=== PATIENT | female | born 2000 | race Caucasian/White ===

== ENCOUNTER 2022-07-11 11:37 | Emergency (ER) | payer MEDICAID, SELFPAY ==
[2022-07-11 11:39] VITALS: BP 114/75; PULSE 90; RESP 16; TEMP 35.9; O2SAT 97; BMI 25.6
--- NOTE | 2022-07-11 12:11 | CT_ITS ---
STUDY: CT ABDOMEN AND PELVIS WITH CONTRAST REASON FOR EXAM: Female, 22 years old. appendicitis -- IV PO Contrast. The patient is adequately shielded. RADIATION DOSAGE (If Supplied By Facility): CTDIvol = ( 11.14 ) mGy, DLP = ( 626.86 ) mGycm TECHNIQUE: Transaxial images were obtained from the dome of the diaphragm to the symphysis pubis without oral contrast. IV 100mL Isovue-300 was administered. Sagittal and coronal images were reconstructed. Individualized dose optimization techniques were used for this CT. COMPARISON: None. FINDINGS: The visualized lung bases are unremarkable. The visualized portions of the heart are within normal limits. Anterior uterine gestation is seen. Normal liver. The patient is status post cholecystectomy. Normal spleen. Normal pancreas. Normal bilateral adrenal glands. Mild degree of bilateral hydronephrosis slightly more prominent on the right side most likely secondary to the state. There is a small hiatal hernia. Normal small intestine. Normal colon. The appendix is visualized and appears normal. Normal abdominal aorta. Normal inferior vena cava. Normal retroperitoneum. Normal urinary bladder. Normal abdominal wall. Normal osseous structures. CT/Abdomen/Pelvis WITH Contrast IMPRESSION: No evidence of appendicitis. Electronically Signed: Miky Montez MD at 14:08 EDT ,
--- NOTE | 2022-07-11 12:13 | EDS_ITS ---
HPI History of Present Illness Chief Complaint: Abd Pain Informant: patient Narrative Narrative: 22-year-old female presenting to the emergency room with nausea and abdominal pain. Patient is in her third trimester of . She sees Dr. Ayala. She states she has been having some vague abdominal cramping for 3 weeks. She notes that she has now developed nausea and worsening pain on the right side of her abdomen. She visited with her OB today and was sent to the emergency room to rule out appendicitis. She is G3, P2. She denies urinary symptoms. She has had prior cholecystectomy. PFSH PFSH Allergy/AdvReac Type Severity Reaction Status Date / Time No Known Allergies Allergy Verified 07/11/22 11:37 Surgical History History of cholecystectomy Social History Smoking Status: Former smoker ROS ROS ED Constitutional Constitutional ED: Denies chills, fever(s) or weight loss Eyes Eyes: Denies change in vision or diplopia ENT ENT ED: Denies ear pain, rhinorrhea or sore throat Cardiovascular Cardiovascular: Denies chest pain, orthopnea, palpitations or racing heartbeat Respiratory/Chest Respiratory/Chest: Denies cough, dyspnea or orthopnea Gastrointestinal Gastrointestinal: Reports abdominal pain and nausea; Denies diarrhea or vomiting Genitourinary Genitourinary ED: Denies dysuria, hematuria or urinary frequency Musculoskeletal Musculoskeletal: Denies arthralgias or myalgias Integumentary Denies abscess or rash Neurologic Neurologic: Denies headache(s) or weakness Psychiatric Psychiatric: Denies anxiety, depression, suicidal ideation or suicidal thoughts Endocrine Endocrinology: Denies polydipsia, polyphagia or polyuria Allergic/Immunologic Allergic/Immunologic ED: Denies mouth swelling, tongue swelling or urticaria EXAM Physical Exam Const Vital Signs: 07/11/22 11:39 Temperature 96.6 F L Temperature Source Temporal Pulse Rate 90 Respiratory Rate 16 Blood Pressure 114/75 Blood Pressure Mean 88 Pulse Ox 97 Oxygen Delivery Method Room Air Positive well nourished and well developed General Appearance ED: well developed HEENT Reports normocephalic, head/scalp atraumatic and moist mucous membranes Eyes PERRL and EOMs intact bilaterally Neck no lymphadenopathy, supple and no JVD Resp normal respiratory effort and clear to auscultation bilaterally Cardio regular rate, regular rhythm and no murmurs GI GI Narrative: Patient has tenderness to palpation on the right side of her abdomen. There is no guarding or rebound. Auscultation: normoactive bowel sounds Palpation: soft and tender; Negative for guarding or rebound tenderness present Back/Spine no CVA tenderness and normal ROM Extremity normal to inspection General Extremety ED: Negative for edema General Extremity: Negative for edema Neuro oriented x3 and CN's II-XII intact bilaterally Sensorium / Orientation: alert Motor Exam: strength 5/5 throughout Psych mental status grossly normal Mood & Affect: Negative for depressed or tearful Skin no rashes or lesions noted and no wounds MDM MDM MDM Narrative Medical decision making narrative: White count is normal at 8.3. Hemoglobin 10.0 which is most likely a physiologic anemia of . CMP negative. CT abdomen pelvis with IV and oral contrast was obtained. This showed normal appendix. At this point I think the patient can be discharged home. She has follow-up with her PROFESSIONAL NURSE next week. Return if worsening or any concerns Lab Data Attestation: I reviewed the patient's lab results. Labs: Laboratory Results - last 24 hr 07/11/22 07/11/22 12:35 12:35 WBC 8.3 RBC 3.44 L Hgb 10.0 L Hct 30.4 L MCV 88.4 MCH 29.1 MCHC 32.9 RDW Std Deviation 44.6 H RDW Coeff of Naveen 13.8 Plt Count 294 MPV 9.3 Immature Gran % (Auto) 0.500 Neut % (Auto) 72.2 H Lymph % (Auto) 19.8 [place]iffl[place] % (Auto) 6.7 Eos % (Auto) 0.6 Baso % (Auto) 0.2 Absolute Neuts (auto) 6.0 Absolute Lymphs (auto) 1.65 Nucleated RBC % 0 Sodium 140 Potassium 3.8 Chloride 109 H Carbon Dioxide 24.0 Anion Gap 7 BUN 7 Creatinine 0.52 L Estim Creat Clear Calc 150.11 Est GFR (MDRD) Af Amer 184 Est GFR (MDRD) Non-Af 152 BUN/Creatinine Ratio 13.4 Glucose 85 Calcium 9.6 Total Bilirubin 0.20 AST 9 L ALT 14 Alkaline Phosphatase 85 Total Protein 6.7 Albumin 2.5 L Globulin 4.2 Albumin/Globulin Ratio 0.6 L Radiography Diagnostic Testing: Clinical Impression(s) from Imaging Studies Abdomen/Pelvis CT 07/11/22 12:11 IMPRESSION: No evidence of appendicitis. Electronically Signed: Miky Montez MD at 14:08 EDT , Discharge Plan Triage Chief Complaint: Abd Pain ED Provider: Jack Wilcox Dx/Rx/DC Orders Clinical Impression: Abdominal pain, Third trimester , Nausea Instructions: ED Abdominal Pain Unkn Cause Fem Primary Care Provider: Care Physician,No Primary Referrals: Allison Rowell MD [Med Staff - Active Staff] - Keep Kely appointment Care Physician,No Primary [Primary Care Provider] - Disposition Disposition: Home, Self Care
[2022-07-11] MEDS: Ondansetron 4 MG/2 ML Vial IV (12:34)
[2022-07-11 12:39] LABS: Absolute Lymphocyte Count 1.65 X10^3/uL (0.83-4.51); Basophil# 0.02 X10^3/uL; Basophil% 0.2 % (0-1); Eosinophil# 0.05 X10^3/uL; Eosinophils% 0.6 % (0-5); Hematocrit 30.4 % (37-47); Lymphocyte # 1.65 X10^3/ul (0.83-4.51); Lymphocyte % 19.8 % (19-41); Mean Corp Hgb Conc 32.9 g/dL (32-36); Mean Corpuscular Hgb 29.1 pg (27.0-32.0); Mean Corpuscular Volume 88.4 fL (81-99); Mean Platelet Vol. 9.3 fl (6.2-12.0); Monocyte# 0.56 X10^3/uL; Monocyte% 6.7 % (0-10); NRBC Flagged by Analyzer 0 % (0-5); Neutrophil # 6.01 X10^3/uL (2.7-7.7); Neutrophil % 72.2 % (47-70); Platelet Count 294 K/mm3 (150-450); RBC Distribution Width CV 13.8 % (11.6-14.6); RBC Distribution Width SD 44.6 fl (35.1-43.9); Red Blood Count 3.44 M/mm3 (4.2-5.4); White Blood Count 8.3 K/mm3 (4.4-11.0)
[2022-07-11 12:55] LABS: ALB/GLOB Ratio 0.6 RATIO (0.9-2.4); AST(SGOT) 9 U/L (15-37); Alanine Aminotransfer ALT/SGPT 14 U/L (13-56); Albumin, Serum 2.5 g/dL (3.2-5.0); Alkaline Phosphatase 85 U/L (45-117); Anion Gap 7 (5-15); BUN 7 mg/dL (7-18); BUN/Creat Ratio 13.4 RATIO (10-20); Calcium,Total 9.6 mg/dL (8.5-10.1); Chloride 109 mmol/L (98-107); Creatinine, Serum 0.52 mg/dL (0.55-1.02); EST Glomerular Filtration Rate 152 mL/min (>60); Est Glom Filt Rate - Afr Amer 184 mL/min (>60); Estimated Creatinine Clearance 150.11 ml/min; Globulin 4.2 g/dL (2.2-4.2); Glucose 85 mg/dL (74-106); Potassium 3.8 mmol/L (3.5-5.1); Protein, Total 6.7 g/dL (6.4-8.2); Sodium Level 140 mmol/L (136-145)
[2022-07-11] MEDS: Acetaminophen 500 MG Tablet 1000 MG PO (13:57)
--- NOTE | 2022-07-11 14:22 | CM.ED ---
SW Note Referral Source: Case Find Referral Reason: No Primary Care Physician (PCP) SW reviewed chart and noted that patient has no PCP. SW provided patient with list of [facility] List for reference. No other issues or concerns voiced at this time. SW remains available for any additional needs. Plan: Provided patient with PCP information Ly ROME
== END 2022-07-11 14:38 | disposition home or self-care (01) ==
PROVIDERS: Emergency Provider Emergency Medicine; Visit Provider Emergency Medicine
DX: O99.891 Other specified diseases and conditions complicating pregnancy (principal); R10.9 Unspecified abdominal pain; R11.0 Nausea; Z87.891 Personal history of nicotine dependence
CPT/HCPCS: 74177; 80053; 85025; 96374; 99284; Q9967; J2405

== ENCOUNTER 2022-09-22 12:55 | Inpatient (IN) | payer MEDICAID, SELFPAY ==
[2022-09-22] VITALS (44 sets, daily range): BP systolic 80–154; BP diastolic 45–114; PULSE 46–100; TEMP 35.7–36.6; O2SAT 96–100; BMI 26.9
[2022-09-22 12:45] LABS: Hemoglobin 10.6 g/dL (12.0-15.0); Mean Corp Hgb Conc 33.1 g/dL (32-36); Mean Corpuscular Hgb 27.5 pg (27.0-32.0); Mean Corpuscular Volume 83.1 fL (81-99); Mean Platelet Vol. 10.7 fl (6.2-12.0); Platelet Count 282 K/mm3 (150-450); RBC Distribution Width CV 14.6 % (11.6-14.6); RBC Distribution Width SD 43.8 fl (35.1-43.9); Red Blood Count 3.85 M/mm3 (4.2-5.4); White Blood Count 7.3 K/mm3 (4.4-11.0)
[2022-09-22 12:53] LABS: AST(SGOT) 28 U/L (15-37); Alanine Aminotransfer ALT/SGPT 66 U/L (13-56); Creatinine, Serum 0.85 mg/dL (0.55-1.02); EST Glomerular Filtration Rate 87 mL/min (>60); Est Glom Filt Rate - Afr Amer 105 mL/min (>60); Estimated Creatinine Clearance 91.83 ml/min; Uric Acid 7.1 mg/dL (2.6-6.0)
[2022-09-22 12:58] LABS: Protein, Urine (Random) 283.9 mg/dL (<11.9); Protein:Creat Ratio 1314 mg/g CRE (0-200)
[2022-09-22] MEDS: Lactated Ringers 1,000 ML 50 ML IV (13:05)
[2022-09-22 14:00] LABS: Bedside Glucose 110 mg/dL (74-106)
[2022-09-22] MEDS: Oxytocin 15 Units/NS 250ml 15 UNITS/250 ML IV.SOLN 2 UNITS IV (14:52)
[2022-09-22 15:26] LABS: Bedside Glucose 94 mg/dL (74-106)
[2022-09-22] MEDS: LACTATED RINGERS 500 ML 999 ML IV ×3 (16:05→21:57)
[2022-09-22] MEDS: fentaNYL-bupivacaine (epidural) 100 ML BAG EPIDURAL (17:08)
[2022-09-22] MEDS: Penicillin G 3,000,000 Units 50 ML 100 UNITS IV ×2 (17:40→21:14)
[2022-09-22] MEDS: Lactated Ringers 1,000 ML 200 ML IV (19:20)
[2022-09-22 19:25] LABS: Bedside Glucose 93 mg/dL (74-106)
--- NOTE | 2022-09-22 21:06 | PCM.HP.OB ---
HPI - General General Date of Admission: 09/22/22 Date of Service: 09/22/22 Chief Complaint: elevated blood pressure HPI Narrative AVINASH HERNANDEZ, is a 22 F at 37w2d who presents to the office for a routine visit. BP elevated in mild range and proteinuria noted so she was sent to L&D for further eval. She denies GUERRERO, vision changes, RUQ pain, malaise, ctx, vb, lof. Good FM. PFSH PFSH Medical History (Updated 09/22/22 @ 21:[address] Hetal Menezes, DO) Anxiety Asthma Depression Gestational diabetes HPV (human papilloma virus) infection Pre-eclampsia PTSD (post-traumatic stress disorder) Home Medications Novolin 70-30 FlexPen U-100 10 units OTHER QHS 09/22/22 [History Last Taken 09/21/22 22:00] [id number] 1 mg tablet 1 tab PO DAILY Check with primary doctor 09/22/22 [History Last Taken 09/22/22 07:00] Allergy/AdvReac Type Severity Reaction Status Date / Time No Known Allergies Allergy Verified 09/22/22 12:07 Surgical History (Updated 09/22/22 @ 13:44 by Kavitha Mendez) History of cholecystectomy History of surgery Social History Smoking Status: Never smoker History Elective abortions Hx Para 2 Spontaneous abortions Hx # Term Pregnancies Ectopic pregnancies Hx # Pregnancies Multiple births # of living children NST FHR Rate Baby A FHR Category:: Category I Vital Signs Vital Signs Vital Signs: 09/22/22 12:16 09/22/22 12:16 09/22/22 12:16 Temperature 97.9 F Temperature Source Pulse Rate 100 Blood Pressure 135/103 H BP Systolic 135 BP Diastolic 103 Pulse Ox 09/22/22 12:16 09/22/22 12:16 09/22/22 12:31 Temperature Temperature Source Temporal Pulse Rate Blood Pressure 135/95 H BP Systolic 135 BP Diastolic 95 Pulse Ox 96 09/22/22 12:31 09/22/22 12:47 09/22/22 12:47 Temperature Temperature Source Pulse Rate 86 96 Blood Pressure 124/90 H BP Systolic 124 BP Diastolic 90 Pulse Ox 09/22/22 13:02 09/22/22 13:02 09/22/22 13:58 Temperature Temperature Source Pulse Rate 94 Blood Pressure 143/103 H 141/96 H BP Systolic 143 141 BP Diastolic 103 96 Pulse Ox 09/22/22 13:58 09/22/22 13:58 09/22/22 13:58 Temperature 97.9 F Temperature Source Temporal Pulse Rate 97 Blood Pressure BP Systolic BP Diastolic Pulse Ox 09/22/22 14:55 09/22/22 14:55 09/22/22 14:55 Temperature 97.3 F L Temperature Source Pulse Rate 85 Blood Pressure 132/90 H BP Systolic 132 BP Diastolic 90 Pulse Ox 09/22/22 14:55 09/22/22 14:55 09/22/22 15:58 Temperature Temperature Source Temporal Pulse Rate Blood Pressure 123/85 H BP Systolic 123 BP Diastolic 85 Pulse Ox 97 09/22/22 15:58 09/22/22 15:58 09/22/22 15:58 Temperature 97.9 F Temperature Source Temporal Pulse Rate 75 Blood Pressure BP Systolic BP Diastolic Pulse Ox 09/22/22 16:49 09/22/22 16:49 09/22/22 16:53 Temperature 97.7 F L Temperature Source Temporal Pulse Rate Blood Pressure 147/103 H BP Systolic 147 BP Diastolic 103 Pulse Ox 09/22/22 16:53 09/22/22 16:53 09/22/22 16:58 Temperature Temperature Source Pulse Rate 72 85 Blood Pressure BP Systolic BP Diastolic Pulse Ox 99 09/22/22 16:58 09/22/22 17:00 09/22/22 17:00 Temperature Temperature Source Pulse Rate 89 Blood Pressure 137/104 H BP Systolic 137 BP Diastolic 104 Pulse Ox 100 09/22/22 17:04 09/22/22 17:04 09/22/22 17:03 Temperature Temperature Source Pulse Rate 99 Blood Pressure 154/114 H BP Systolic 154 BP Diastolic 114 Pulse Ox 98 09/22/22 17:08 09/22/22 17:08 09/22/22 17:08 Temperature Temperature Source Pulse Rate 92 85 Blood Pressure 130/88 H BP Systolic 130 BP Diastolic 88 Pulse Ox 09/22/22 17:08 09/22/22 17:13 09/22/22 17:13 Temperature Temperature Source Pulse Rate 97 Blood Pressure 133/91 H BP Systolic 133 BP Diastolic 91 Pulse Ox 98 09/22/22 17:13 09/22/22 17:19 09/22/22 17:19 Temperature Temperature Source Pulse Rate 82 Blood Pressure 132/87 H BP Systolic 132 BP Diastolic 87 Pulse Ox 99 09/22/22 17:18 09/22/22 17:19 09/22/22 17:19 Temperature 97.5 F L Temperature Source Temporal Pulse Rate Blood Pressure BP Systolic BP Diastolic Pulse Ox 97 09/22/22 17:23 09/22/22 17:23 09/22/22 17:23 Temperature Temperature Source Pulse Rate 80 Blood Pressure 127/83 H BP Systolic 127 BP Diastolic 83 Pulse Ox 98 09/22/22 17:28 09/22/22 17:28 09/22/22 17:28 Temperature Temperature Source Pulse Rate 75 72 Blood Pressure 122/80 H BP Systolic 122 BP Diastolic 80 Pulse Ox 09/22/22 17:28 09/22/22 17:34 09/22/22 17:34 Temperature Temperature Source Pulse Rate 78 Blood Pressure 125/82 H BP Systolic 125 BP Diastolic 82 Pulse Ox 98 09/22/22 17:33 09/22/22 17:38 09/22/22 17:38 Temperature Temperature Source Pulse Rate 77 Blood Pressure BP Systolic BP Diastolic Pulse Ox 97 98 09/22/22 17:39 09/22/22 17:39 09/22/22 17:45 Temperature Temperature Source Pulse Rate 76 Blood Pressure 130/92 H 119/81 H BP Systolic 130 119 BP Diastolic 92 81 Pulse Ox 09/22/22 17:45 09/22/22 17:53 09/22/22 17:53 Temperature Temperature Source Pulse Rate 71 60 Blood Pressure 80/45 L BP Systolic 80 BP Diastolic 45 Pulse Ox 09/22/22 17:56 09/22/22 17:56 09/22/22 17:58 Temperature Temperature Source Pulse Rate 66 Blood Pressure 121/79 H BP Systolic 121 BP Diastolic 79 Pulse Ox 98 09/22/22 17:58 09/22/22 18:01 09/22/22 18:01 Temperature Temperature Source Pulse Rate 76 77 Blood Pressure BP Systolic BP Diastolic Pulse Ox 98 09/22/22 18:02 09/22/22 18:02 09/22/22 18:06 Temperature Temperature Source Pulse Rate 71 81 Blood Pressure 122/78 H BP Systolic 122 BP Diastolic 78 Pulse Ox 09/22/22 18:06 09/22/22 18:08 09/22/22 18:08 Temperature Temperature Source Pulse Rate 81 Blood Pressure 117/76 BP Systolic 117 BP Diastolic 76 Pulse Ox 97 09/22/22 18:11 09/22/22 18:11 09/22/22 18:14 Temperature Temperature Source Pulse Rate 76 Blood Pressure 141/98 H BP Systolic 141 BP Diastolic 98 Pulse Ox 98 09/22/22 18:14 09/22/22 18:15 09/22/22 18:14 Temperature 96.3 F L Temperature Source Temporal Pulse Rate 70 Blood Pressure BP Systolic BP Diastolic Pulse Ox 09/22/22 18:18 09/22/22 18:18 09/22/22 19:23 Temperature Temperature Source Pulse Rate 65 Blood Pressure 122/84 H 131/92 H BP Systolic 122 131 BP Diastolic 84 92 Pulse Ox 09/22/22 19:23 09/22/22 19:24 09/22/22 19:23 Temperature 97.3 F L Temperature Source Pulse Rate 76 Blood Pressure BP Systolic BP Diastolic Pulse Ox 98 09/22/22 20:40 09/22/22 20:40 09/22/22 20:40 Temperature 97.9 F Temperature Source Pulse Rate 46 L Blood Pressure 119/68 BP Systolic 119 BP Diastolic 68 Pulse Ox 09/22/22 20:40 09/22/22 20:40 Temperature 97.9 F Temperature Source Temporal Pulse Rate Blood Pressure BP Systolic BP Diastolic Pulse Ox Weight Weight: 162 lb Body Mass Index (BMI) 26.9 Physical Exam Const alert and no apparent distress General Appearance: comfortable GI soft to palpation and non-tender Extremity Extremity Narrative: No hyper reflexia Labs Labs Labs: Blood Type A POSITIVE Antibody Screen NEGATIVE Hct 32.0 % (37-47) L Hgb 10.6 g/dL (12.0-15.0) L Assessment & Plan (1) 37 weeks gestation of : PLAN: - Admit for IOL for pre eclampsia without severe features - AROM and pitocin - PCN for GBS positive status - Epidural for pain control - Growth AGA. EFW expected to be < 4500 g and pelvis adequate. Anticipate vaginal delivery (2) Pre-eclampsia: PLAN: - Labs on admission - No pre e symptoms - BP's mild range - No mag gtt indicated at this time - Cont to closely monitor (3) GDM, class A2: PLAN: - Diabetic protocol (4) Positive GBS test: PLAN: - PCN (5) History of depression: PLAN: - Monitor
[2022-09-22 22:26] LABS: Bedside Glucose 73 mg/dL (74-106)
--- NOTE | 2022-09-22 23:20 | PLAC_PTH ---
PATIENT: AVINASH HERNANDEZ LOC: [facility] U#:[id number] AGE/SX: 22/F ROOM: WP019 RE09/22/[address]: Becka Smalls CNM : 2000 BED: 1 DIS: 09/25/2022 SPEC #: [id number] RECD: 09/23/22 02:53 STATUS: SALAS REGabi #: [id number] MIGEL: 09/22/22 23:[address]: Becka Smalls DEPT: SURGICAL PATHOLOGY RECD BY: Aurora Campos ENTERED: 09/23/22 07:31 SP TYPE: PLACENTA OTHR DR: No Primary Care Phys Tissues: Placenta, NOS Procedures: Surgery Specimen Level V HEADER OPERATION: Vaginal delivery PRE-OP DIAGNOSIS: Possible marginal cord insertion TISSUE SUBMITTED: Placenta MICROSCOPIC DIAGNOSIS Mann placenta (530 gm): Umbilical cord ? trivascular with no inflammation. Placental membranes - No pathologic change. Placental disc ? Remote infarcts, organizing intraparenchymal hemorrhage, Jeffry-Cristiano change and increased intraparenchymal microcalcifications. AM:skip 09/25/2022 MICROSCOPIC DESCRIPTION Slides are reviewed. GROSS DESCRIPTION SPECIMEN: PLACENTA / CLINICAL INFORMATION: A. Weight: 2.955 kg B. Gestational Age: 37 weeks C. Sex: Male PLACENTAL WEIGHT (POST FIXATION): 530 gm PLACENTAL DIMENSIONS: 18.5 x 15 x 3 cm PLACENTAL SHAPE: Usual ovoid PLACENTAL WEIGHT FOR GESTATIONAL AGE: Over 99th percentile MEMBRANES - Present A. Insertion: Marginal B. Site of rupture from edge: At from edge of placental disc C. Color of membrane: Sprague-avila D. Abnormalities: None UMBILICAL CORD - Present A. Color: Sprague-avila B. Insertion: Near marginal C. Length: 47 cm D. Diameter: 1.5 cm E. Number of vessels: Three F. Abnormalities: None PLACENTAL DISC - Present A. Color of surface: Sprague-avila B. surface abnormalities: None C. Maternal cotyledons: Intact with minimal tears D. Attached retro placental clot: No clot E. Cut surface: Dark red and spongy F. Lesions: Serial sections reveal four sprague-white lesions that are firm and indurated and range in size from 1.5 to 2.5 cm in greatest dimension. G. Separate clot: Absent SECTIONS SUBMITTED: 1. Umbilical cord ( end notched) 2. Umbilical cord, placental end 3. Membrane roll 4. Placental disc, and maternal surfaces, lesion 5. Placental disc, and maternal surfaces, lesion 6. Placental disc, and maternal surfaces, lesion AM:skip 09/24/2022 TC:5 CPT: 97459
--- NOTE | 2022-09-22 23:35 | OP.PCM_ITS ---
Problems Associated Problem List Diagnoses (1) Positive GBS test: (2) GDM, class A2: (3) Pre-eclampsia: (4) 37 weeks gestation of : (5) History of depression: Report of Operation Date of Procedure: 09/22/22 Pre-Operative Diagnosis: 37 week gestation, single IUP, pre eclampsia, A2GDM Post-Operative Diagnosis: As above Surgery/Procedure Performed:: Description of Surgical Findings:: VMI in MARY LOU position. Loose nuchal cord around body x 1. Placenta with possible marginal cord insertion and 3 VC Surgeon: Hetal Menezes wet plant operator: None Type of Anesthesia: Epidural Special Medications: None Specimen's removed: Placenta Drains: Alvarez Estimated Blood Loss (mL): 100 Fluids Replaced: N/A Description of Procedure: RN called for bradycardia. heart rate tracing was 60 bpm for several minutes, and patient was taken back to the operating room for further care and assessment. Once back in the operating room, the heart rate tracing had recovered to baseline. heart rate 110 bpm/moderate variability/no accels/occasional variables with pushing. She was noted to be complete and at 0 station. Patient began pushing with good descent and good maternal effort. After several contractions the head of the was delivered in right occiput anterior position. A loose nuchal cord x1 was noted around the body of the infant and this was reduced. The anterior shoulder was delivered spontaneously followed by the posterior shoulder, and body of the infant without any force or delay. A vigorous viable male infant was delivered atraumatically and placed on maternal abdomen. Apgars were 8, 9. The cord was clamped and cut by the father the baby after 60 seconds. Cord gases were obtained. The placenta delivered spontaneously and was noted to be intact with a possible marginal cord insertion. The placenta was sent to pathology for review. The uterus was explored x1. The fundus was firm and bleeding was hemostatic. No lacerations were noted. Vaginal sweep was performed. Sponge counts were correct. Grafts/Implants Used: None Complications None Admit VTE Documentation VTE Present on Admission: No VTE Mechan Device Prophylaxis: SCD's
[2022-09-23] VITALS (46 sets, daily range): BP systolic 124–157; BP diastolic 83–112; PULSE 50–93; RESP 15–17; TEMP 36.1–36.9; O2SAT 87–99
[2022-09-23 00:25] LABS: Bedside Glucose 78 mg/dL (74-106)
[2022-09-23 00:25] LABS: Bedside Glucose 73 mg/dL (74-106)
[2022-09-23] MEDS: Ibuprofen 600 MG Tablet PO ×3 (05:38→21:01)
--- NOTE | 2022-09-23 08:18 | PCM.PROGNOTE ---
Subjective Subjective patient seen at bedside, doing well. Patient reports good pain control. lochia mild. denies GUERRERO, visual changes. Objective Data Objective Data Vital Signs: Vital Signs Temp Pulse Resp BP Pulse Ox O2 Del Method 97.7 F L 60 15 136/93 H 96 Room Air 09/23/22 08:15 09/23/22 08:15 09/23/22 05:28 09/23/22 08:15 09/23/22 08:15 09/23/22 05:28 Oxygen Delivery Method Room Air Weight: 73.482 kg Body Mass Index (BMI) 26.9 Intake & Output: Intake and Output for Last 24 Hours 09/21/22 09/22/22 09/23/22 23:59 23:59 23:59 Intake Total 3138.50 / 3138.50 199.83 / 199.83 Output Total 400 / 400 200 / 200 Balance 2738.50 / 2738.50 -0.17 / -0.17 Lab / Micro Data Result Diagrams: 09/22/22 12:25 09/22/22 12:25 Labs: Laboratory Results - last 24 hr 09/22/22 12:25: WBC 7.3, RBC 3.85 L, Hgb 10.6 L, Hct 32.0 L, MCV 83.1, MCH 27.5, MCHC 33.1, RDW Std Deviation 43.8, RDW Coeff of Naveen 14.6, Plt Count 282, MPV 10.7 09/22/22 12:25: U Random Total Protein 283.9 H, Urine Creatinine 216.00, Protein/Creatinin Ratio 1314 H 09/22/22 12:25: Creatinine 0.85, Estim Creat Clear Calc 91.83, Est GFR (MDRD) Af Amer 105, Est GFR (MDRD) Non-Af 87, Uric Acid 7.1 H, AST 28, ALT 66 H 09/22/22 12:25: Blood Type A POSITIVE, Antibody Screen NEGATIVE 09/22/22 13:41: POC Glucose 110 H 09/22/22 14:51: POC Glucose 94 09/22/22 18:58: POC Glucose 93 09/22/22 22:00: POC Glucose 73 L 09/22/22 22:38: POC Glucose 78 09/23/22 00:01: POC Glucose 73 L Physical Exam Const alert and oriented x3 General Appearance: cooperative HEENT normocephalic Neck General: normal visual inspection GI soft to palpation and non-distended GI Narrative: Fundus firm Extremity normal to inspection and no calf tenderness Skin no rashes or lesions noted Neuro oriented x3 and CN's II-XII intact bilaterally Psych mental status grossly normal Assessment & Plan Assessment/Plan (1) History of depression: (2) Pre-eclampsia: (3) Vaginal delivery: PLAN: Plan PPD# PRE E w/o severe features, GDMA2 , Doing well Routine care pain mgmt ambulation monitor BPs- no severe range bps or symptoms at this time
[2022-09-23] MEDS: Acetaminophen 500 MG Tablet 1000 MG PO ×2 (09:26→21:01)
[2022-09-23 12:14] LABS: Bedside Glucose 74 mg/dL (74-106)
--- NOTE | 2022-09-23 21:31 | NURSING ---
BP at 2044 was 138/96, pt sitting in bed and was just up ambulating in room. No other symptoms. Will reassess after patient relaxes in bed and rests for a little time.
--- NOTE | 2022-09-23 21:52 | NURSING ---
Rechecked BP was 130/94. PT stated she just recently developed a headache and some vision changes a few minutes ago since she has relaxed. Dr. Ayala on the floor for a delivery- will speak to her when she comes out of room.
[2022-09-24] VITALS (10 sets, daily range): BP systolic 131–164; BP diastolic 87–100; PULSE 67–79; RESP 14–17; TEMP 36.5–36.9; O2SAT 97–98
[2022-09-24] MEDS: Ibuprofen 600 MG Tablet PO (05:58)
[2022-09-24 07:10] LABS: Bedside Glucose 82 mg/dL (74-106)
--- NOTE | 2022-09-24 08:58 | PCM.PN.OB ---
Subjective Subjective Pain well controlled. Average lochia. Denies headache or visual changes or epigastric pain. Would like to be discharged home today. Objective Data Objective Data Vital Signs: Vital Signs Temp Pulse Resp BP Pulse Ox O2 Del Method 97.7 F L 69 17 131/91 H 98 Room Air 09/24/22 01:24 09/24/22 01:23 09/24/22 01:20 09/24/22 01:23 09/23/22 15:38 09/23/22 15:38 Oxygen Delivery Method Room Air Weight: 73.482 kg Body Mass Index (BMI) 26.9 Intake & Output: Intake and Output for Last 24 Hours 09/22/22 09/23/22 09/24/22 23:59 23:59 23:59 Intake Total 3138.50 / 3138.50 199.83 / 199.83 Output Total 400 / 400 550 / 550 Balance 2738.50 / 2738.50 -350.17 / -350.17 Lab / Micro Data Result Diagrams: 09/22/22 12:25 09/22/22 12:25 Labs: Laboratory Results - last 24 hr 09/23/22 05:00: POC Glucose 74 09/24/22 06:50: POC Glucose 82 Physical Exam Narrative 1+ lower extremity edema, 2+ DTRs, 1 beat of clonus. Const alert and no apparent distress Narrative: Fundus firm, below umbilicus. Assessment & Plan (1) Vaginal delivery: PLAN: day #2 status post vaginal delivery. is doing well. Patient has been diagnosed with preeclampsia without severe features features. Her systolic blood pressures are running in the 90s. We will start labetalol. Patient has a history of asthma but not on any current meds uncomfortable trialing labetalol. If does well can discharge home later this evening if okay with pediatrics. Follow-up in the office in 2 to 3 days or as needed. We will set up for home blood pressure monitoring if discharged home today. (2) Pre-eclampsia:
[2022-09-24] MEDS: Labetalol 200 MG Tablet PO ×2 (11:09→22:10)
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
[2022-09-24 17:22] LABS: Amphetamine Urine VISTA NEGATIVE (<1000 ng/mL); Barbiturate Urine VISTA NEGATIVE (< 200 ng/mL); Benzodiazepine Urine VISTA NEGATIVE (< 200 ng/mL); Cocaine Urine VISTA NEGATIVE (< 300 ng/mL); Ecstacy Urine VISTA NEGATIVE (< 500 ng/mL); Methadone Urine VISTA NEGATIVE (< 300 ng/mL); PCP Urine VISTA NEGATIVE (< 25 ng/mL); THC Urine VISTA NEGATIVE (< 50 ng/mL); Vista UDS pH Range 6
--- NOTE | 2022-09-24 17:23 | PN_ITS ---
Progress Note Patient evaluated by social work. Patient admits to suicidal ideation, frequently and thinking about how she would do it. We are uncomfortable disc harging the patient home at this point. She would like to be evaluated and treated inpatient for acute depression with suicidal ideation.
--- NOTE | 2022-09-24 17:35 | CASEMGMT ---
Social Work Unit: Labor and delivery Met with MOB and updated conversation with physician. Refer to prior social work notes dated 09/24/2022 for details of assessment, depression screening and suicide risk assessment. MOB agreed to sign a release of information to her mother Halina Martines and to [facility] where MOB receives counseling MOB reports MOB's mother Halina might not be too surprised about how MOB is doing. Let MOB know would be speaking to Halina about securing firearms in the home. MOB did ask about being able to pump, which this magnetic tape typewriter operator agreed to pass along when referrals are made. Called MOB's mother Halina. Updated Halina to recommendation to pursue inpatient mental health treatment for this patient/mother of baby (MOB). Halina acknowledges that HERB has been dealing with depression for a long time now and has had social stressors. Halina reports willingness to take care of HERB's baby for the duration of any inpatient mental health treatment the MOB may receive. This magnetic tape typewriter operator addressed firearms in the home and need for these firearms to be secured. Halina reports willingness and intends to change the access code so that HERB is unable to access the gun safe. Halina did express concern about breast milk versus formula for the baby. Spoke with Lucille and regarding MOB's question about being able to pump breastmilk and the MOB's mother concerned about getting baby formula. will continue to work with MOB overnight for pumping of additional milk, so that there could be a store in place to help supplements any formula that might need to be needed for the baby. Called Halina and updated. Provided this magnetic tape typewriter operator's phone number for Halina to call on 09/25/2022 for an update. Spoke with Dr. Stapleton, CLOTHES DRIER REPAIRER, and MOB has been started on medication for preeclampsia. Plan: Pending inpatient mental health treatment. -WILD Fields, LABELING MACHINE OPERATOR
--- NOTE | 2022-09-24 18:30 | CASEMGMT ---
Social Work Labor and Delivery Spoke with patient's parents and [facility] is closer than [facility] for inpatient referrals. Educated that cannot guarantee acceptance but will attempt a facility in closer proximity to the patient's family and home. Spoke with Edwige at [facility], who reports there are beds available to consider a referral. Informed Edwige this patient just delivered a baby on 09.22.22, and OB okay with keeping patient overnight to monitor blood pressure medication until 09.25.22. Asked for a message to be left on voicemail about determination of referral, and will address in the a.m. on 09.25.2022. Confirmed fax [phone] and faxed referral packet. Did not compete test due to just delivering a baby. Plan: Pending inpatient psych placement. -WILD Fields, PLANT BREEDER
[2022-09-24] MEDS: Acetaminophen 500 MG Tablet 1000 MG PO (22:53)
[2022-09-25 02:30] VITALS: BP 128/91; PULSE 72; RESP 14; TEMP 37.1
[2022-09-25] MEDS: Ibuprofen 600 MG Tablet PO (02:38)
[2022-09-25 07:45] VITALS: BP 152/107; PULSE 58; RESP 16; TEMP 36.7
[2022-09-25] MEDS: Acetaminophen 500 MG Tablet 1000 MG PO (07:52)
[2022-09-25] MEDS: Labetalol 200 MG Tablet PO (07:53)
--- NOTE | 2022-09-25 08:44 | PCM.PN.OB ---
Subjective Subjective Patient seen at bedside. Tearful at times. C/O mild headache since waking up today. Rates pain 3/10. Ambulating and voiding without difficulty. with minimal support. Working with case management for transfer to inpatient psychiatric today. Objective Data Objective Data Vital Signs: Vital Signs Temp Pulse Resp BP Pulse Ox O2 Del Method 98.0 F 58 L 16 152/107 H 98 Room Air 09/25/22 07:45 09/25/22 07:45 09/25/22 07:45 09/25/22 07:45 09/24/22 14:55 09/25/22 02:30 Oxygen Delivery Method Room Air Weight: 162 lb Body Mass Index (BMI) 26.9 Intake & Output: Intake and Output for Last 24 Hours 09/23/22 09/24/22 09/25/22 23:59 23:59 23:59 Intake Total 199.83 / 199.83 Output Total 550 / 550 Balance -350.17 / -350.17 Lab / Micro Data Result Diagrams: 09/22/22 12:25 09/22/22 12:25 Labs: Laboratory Results - last 24 hr 09/24/22 16:45: Urine Opiates Screen NEGATIVE, Urine Methadone Screen NEGATIVE, Ur Barbiturates Screen NEGATIVE, Ur Phencyclidine Scrn NEGATIVE, Ur Amphetamines Screen NEGATIVE, MDMA (Ecstasy) Screen NEGATIVE, U Benzodiazepines Scrn NEGATIVE, Urine Cocaine Screen NEGATIVE, U Cannabinoids Screen NEGATIVE, Ur Drug Screen Comment Micro: Microbiology 09/24/22 15:20 Nasal Secretion SARS-CoV-2 Antigen (Rapid) - Final ROS Eyes Eyes: Denies blurry vision, change in vision or spots in vision ENT HEENT: Denies dizziness or headache(s) Cardiovascular Cardiovascular: Denies abdominal pain, chest pain or dyspnea Respiratory/Chest Respiratory/Chest: Denies cough, dyspnea, shortness of breath at rest or shortness of breath with exertion Gastrointestinal Gastrointestinal: Denies abdominal pain, diarrhea or vomiting Genitourinary Genitourinary: Denies change in urinary stream, difficulty urinating or dysuria Musculoskeletal Musculoskeletal: Reports none Integumentary Integumentary: Denies rash Neurologic Neurologic: Denies dizziness, memory loss or weakness Physical Exam Const alert and no apparent distress General Appearance: cooperative and comfortable Exam Limitations: no limitations HEENT normocephalic Eyes General Eye: normal appearance of both eyes Neck full ROM General: normal visual inspection Chest Chest: symmetrical chest wall rise Resp normal respiratory effort and normal air movement Effort and Inspection: symmetric chest movement Auscultation: clear to auscultation bilaterally Cardio regular rate and regular rhythm GI normal to inspection, nondistended, normoactive bowel sounds Back/Spine normal ROM Extremity full ROM and no calf tenderness General Extremity: normal exam except as noted Skin no rashes or lesions noted Neuro CN's II-XII intact bilaterally Psych mental status grossly normal Psych Narrative: Mood depressed. Tearful Assessment & Plan (1) Vaginal delivery: (2) History of depression: (3) Pre-eclampsia: (4) Care and examination of lactating mother: (5) Depression: COMMENT: major depression, no medications PLAN: Plan PPD 2 BP this morning - 152/107 and 144/109- patient asymptomatic Continue Labetalol 200 mg PO BID Start Procardia XL 30 mg PO Daily Patient to be discharged but being transferred to psych. inpatient due to suicidal ideations/depression Dr. Menezes involved with plan of care Case management involved with transfer of care today
--- NOTE | 2022-09-25 08:53 | DCINST_ITS ---
Discharge Instructions Diet Discharge Diet: No restrictions Activity Discharge Activity: Return to Normal Activity, May Shower and May Take a Tub Bath May resume sexual activity in: 4-6 weeks Weight Bearing Status: Weight bearing as tolerated Dressing / Incision Call your doctor if you observe: Inability to urinate, Using more than 1 pad per hour, Shortness of breath, Dizziness, Swelling in the ankles, Chest pain, Calf discomfort and Uncontrolled pain Follow Up Care Please Follow Up With: Corrie Tomas CNM When: Within 10 days Test Results: Test results from this visit will be discussed in further detail at your follow- up appointment, if applicable. Discharge Plan Admission Admit Date/Time: 09/22/22 12:55 Primary Reason for Your Visit: Labor and Delivery Attending Provider: Becka Smalls Primary Care Provider: Gemma Ruiz Primary Discharge Orders/Prescriptions Prescriptions: New labetalol 200 mg Tablet 200 mg PO BID Qty: 60 1RF nifedipine 30 mg Tablet Extended Release 24hr 30 mg PO DAILY Qty: 30 1RF Continued ckqdtmpz-[id number]-It-FA 1 mg Tablet 1 tab PO DAILY Discontinued Novolin 70-30 FlexPen U-100 10 units OTHER QHS Rx Instructions: subcutaneous injection Referrals / Follow Up: Care Physician,No Primary [Primary Care Provider] - Disposition Disposition (needs filled in before D/C Order can be placed): Psychiatric Hospital or Unit
--- NOTE | 2022-09-25 09:08 | CASEMGMT ---
Social Work Labor and Delivery Message from Melly at [facility] stating that Dr. Jackson willing to accept if patient has not yet been placed elsewhere. Message at 2230 on 09.24.22. Called [phone] and spoke with studio operations engineer in charge. RN reports had thought patient was already placed, but did not Dr. Jackson was willing to accept. RN reports will need a test. Informed that no test is done due to patient just delivering. Updated that patient is and coming from labor and delivery. RN reports to need to confer with Dr. Jackson. Returned call to patient's mother Halina letting know that still waiting on official response from [facility]. Ask Halina to bring patient's home breast pump so that hospital can review with [facility] on proper use. Plan: Pending inpatient mental health treatment. -WILD Fields, TIMBER REPAIRER
[2022-09-25] MEDS: NIFEdipine 30 MG Tablet PO (09:14)
[2022-09-25 13:00] VITALS: BP 150/109; PULSE 70; RESP 18; TEMP 36.8
[2022-09-26 09:25] LABS: Pathology Specimen OB SEE PATHOLOGY REPORT
== END 2022-09-25 13:30 | DRG 560 ==
LOC: WPOUT 12:57 → WP 12:57
PROVIDERS: Obstetrics & Gynecology; Admitting Provider Advanced Practice Midwife; Visit Provider Advanced Practice Midwife
DX: O14.94 Unspecified pre-eclampsia, complicating childbirth (principal); Z37.0 Single live birth; R45.851 Suicidal ideations; O24.429 Gestational diabetes mellitus in childbirth, unspecified control; F32.9 Major depressive disorder, single episode, unspecified; O99.344 Other mental disorders complicating childbirth; Z3A.37 37 weeks gestation of pregnancy; O99.824 Streptococcus B carrier state complicating childbirth; O69.82X0 Labor and delivery complicated by other cord entanglement, without compression, not applicable or unspecified; O76 Abnormality in fetal heart rate and rhythm complicating labor and delivery; O99.893 Other specified diseases and conditions complicating puerperium
CPT/HCPCS: 59025; 59050; 80307; 82565; 82570; 82962; 84156; 84450; 84460; 84550; 85027; 86850; 86900; 86901; 87426; 88307; 93005; 99218; J7120; G0378; J2405

== ENCOUNTER 2023-03-17 17:38 | Emergency (ER) | payer MEDICAID, SELFPAY ==
[2023-03-17 17:38] VITALS: BP 101/74; PULSE 87; RESP 15; TEMP 36; O2SAT 100; BMI 21.2
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
[2023-03-17] MEDS: 0.9% Normal Saline 1,000 ML 1000 ML IV (19:31)
[2023-03-17 19:44] LABS: Absolute Lymphocyte Count 1.68 X10^3/uL (0.83-4.51); Basophil# 0.01 X10^3/uL; Basophil% 0.2 % (0-1); Eosinophil# 0.19 X10^3/uL; Hematocrit 33.1 % (37-47); Hemoglobin 10.8 g/dL (12.0-15.0); Lymphocyte # 1.68 X10^3/ul (0.83-4.51); Lymphocyte % 26.5 % (19-41); Mean Corp Hgb Conc 32.6 g/dL (32-36); Mean Corpuscular Hgb 27.3 pg (27.0-32.0); Mean Corpuscular Volume 83.8 fL (81-99); Mean Platelet Vol. 9.7 fl (6.2-12.0); Monocyte# 0.49 X10^3/uL; Monocyte% 7.7 % (0-10); NRBC Flagged by Analyzer 0 % (0-5); Neutrophil # 3.97 X10^3/uL (2.7-7.7); Neutrophil % 62.4 % (47-70); Platelet Count 277 K/mm3 (150-450); RBC Distribution Width CV 14.9 % (11.6-14.6); RBC Distribution Width SD 45.3 fl (35.1-43.9); Red Blood Count 3.95 M/mm3 (4.2-5.4); White Blood Count 6.4 K/mm3 (4.4-11.0)
[2023-03-17 19:56] LABS: Internal QC Validated? YES +Cl - CLEAR BKGD; Pregnancy, Serum, hCG Quali. NEGATIVE Negative
[2023-03-17 20:00] LABS: Anion Gap 8 (5-15); BUN 10 mg/dL (7-18); BUN/Creat Ratio 20.7 RATIO (10-20); Calcium,Total 9.5 mg/dL (8.5-10.1); Chloride 104 mmol/L (98-107); Creatinine, Serum 0.48 mg/dL (0.55-1.02); EST Glomerular Filtration Rate 166 mL/min (>60); Est Glom Filt Rate - Afr Amer 200 mL/min (>60); Estimated Creatinine Clearance 161.22 ml/min; Glucose 96 mg/dL (74-106); Potassium 3.8 mmol/L (3.5-5.1); Sodium Level 139 mmol/L (136-145)
[2023-03-17 20:33] VITALS: RESP 16
[2023-03-17 20:36] LABS: Bacteria 0 SEEN /hpf (None Seen); Red Blood Cells-Urine 0 SEEN /hpf (0-5)
[2023-03-17 20:46] LABS: Color, Urine Yellow (Yellow); Glucose, Dipstick Normal (Normal); Ketone-Dipstick 5 mg/dl (Negative); Leukocyte Esterase-Dipstick 25 /ul (Negative); Nitrite-Dipstick Negative (Negative); Occult Blood-Urine Negative /ul (Negative); Protein-Dipstick 30 mg/dl (Negative); Urine Clarity Sl. Cloudy (Clear); Urine Urobilinogen 4 mg/dl (Normal)
[2023-03-17 21:00] LABS: Urine Bilirubin Dipstick 1 mg/dL (Negative)
[2023-03-17 21:02] LABS: Mucous, Urine 2+ /hpf (<or=2+); Squamous Epithelial Cells - UA 10-25 SEEN /hpf (5-10); White Blood Cells 0-5 SEEN /hpf (0-5)
--- NOTE | 2023-03-17 21:37 | CT_ITS ---
EXAM: CT ABDOMEN AND PELVIS WITHOUT INTRAVENOUS CONTRAST CLINICAL INDICATION: abdominal pain TECHNIQUE: Helically acquired images were obtained of the abdomen and pelvis without intravenous contrast. This CT exam was performed using one or more of the following dose reduction techniques: automated exposure control, adjustment of the mA and/or kV according to patient size, and/or use of iterative reconstruction technique. RADIATION DOSE: Total DLP: 303.50 mGy-cm. COMPARISON: Previous enhanced abdominal pelvic CT of 07/11/2022. FINDINGS: LOWER THORAX: Solitary wedge-shaped focus of subpleural groundglass opacity at the left lung base posteriorly. No pleural effusion. 3.4 cm diameter hiatal hernia. Small amount of fluid noted within the distal esophagus within the hiatal hernia, as on the prior study. The distal esophagus shows no definite mural thickening. No coronary artery calcification is visualized. No significant pericardial effusion. ABDOMEN: LIVER: Unremarkable. Homogeneous. GALLBLADDER AND BILE DUCTS: Previous cholecystectomy. No biliary ductal dilatation or calcified common duct stone identified. PANCREAS: Unremarkable. No focal cystic mass. SPLEEN: Spleen is upper normal in size. ADRENALS: Unremarkable. No nodules. KIDNEYS AND URETERS: Unremarkable. Normal renal size and position. No hydronephrosis. STOMACH AND BOWEL: Unremarkable. No stomach or bowel distention. No focal inflammatory change. PELVIS: APPENDIX: Normal. No evidence of acute appendicitis. BLADDER: Urinary bladder is nearly empty. REPRODUCTIVE: Unremarkable as visualized. Normal size uterus with a centrally positioned IUD. No adnexal mass. ABDOMEN and PELVIS: INTRAPERITONEAL SPACE: Trace of nonspecific low density free fluid in the cul-de-sac, likely physiologic. No free air. BONES/JOINTS: Unremarkable. No suspicious lytic or blastic abnormality. No acute osseous abnormality. SOFT TISSUES: Tiny fat-filled periumbilical hernia. VASCULATURE: Normal caliber abdominal aorta. LYMPH NODES: Unremarkable. No enlarged lymph nodes. CT/Abdomen/Pelvis without Cont IMPRESSION: 1. Small hiatal hernia again noted. 2. Normal appendix. 3. Subpleural groundglass opacity within the left lower lobe, most likely atelectasis though this could possibly be due to minimal Covid pneumonia. 4. No acute intra-abdominal abnormality. Electronically Signed: Sandeep Brooks MD at 22:20 EDT ,
[2023-03-17] MEDS: Ondansetron 4 MG/2 ML Vial IV (22:20)
[2023-03-17] MEDS: 0.9% Normal Saline 1,000 ML 150 ML IV (22:20)
[2023-03-17 22:23] VITALS: BP 100/56; PULSE 82; RESP 16; O2SAT 100
== END 2023-03-17 22:41 | disposition home or self-care (01) ==
PROVIDERS: Emergency Provider Emergency Medicine; Visit Provider Emergency Medicine
DX: R11.2 Nausea with vomiting, unspecified (principal); R10.9 Unspecified abdominal pain
CPT/HCPCS: 74176; 80048; 81001; 84703; 85025; 96361; 96374; 99282; J7030; A4216; J2405

== ENCOUNTER 2025-02-07 15:08 | Emergency (ER) | payer SELFPAY ==
[2025-02-07 15:09] VITALS: BP 130/101; PULSE 90; RESP 18; TEMP 37.1; O2SAT 100; BMI 21.2
[2025-02-07 16:03] LABS: Absolute Lymphocyte Count 1.75 X10^3/uL (0.83-4.51); Absolute Neutrophil Count 4.1 X10^3/uL (2.0-7.7); Basophil# 0.05 X10^3/uL; Basophil% 0.8 % (0-1); Eosinophil# 0.05 X10^3/uL; Eosinophils% 0.8 % (0-5); Hematocrit 41.5 % (37-47); Lymphocyte # 1.75 X10^3/ul (0.83-4.51); Lymphocyte % 27.9 % (19-41); Mean Corp Hgb Conc 33.7 g/dL (32-36); Mean Corpuscular Volume 89.1 fL (81-99); Mean Platelet Vol. 9.3 fl (6.2-12.0); Monocyte# 0.34 X10^3/uL; Monocyte% 5.4 % (0-10); NRBC Flagged by Analyzer 0 % (0-5); Neutrophil # 4.08 X10^3/uL (2.7-7.7); Neutrophil % 64.9 % (47-70); Platelet Count 291 K/mm3 (150-450); RBC Distribution Width CV 13.1 % (11.6-14.6); RBC Distribution Width SD 42.7 fl (35.1-43.9); Red Blood Count 4.66 M/mm3 (4.2-5.4); White Blood Count 6.3 K/mm3 (4.4-11.0)
[2025-02-07 16:09] VITALS: BP 101/59
[2025-02-07 16:17] LABS: Internal QC Validated? YES +Cl - CLEAR BKGD; Pregnancy, Serum, hCG Quali. NEGATIVE Negative
[2025-02-07 16:25] LABS: Alcohol, Blood (Medical)-Serum < 10.1 mg/dL (<=10.0); Anion Gap 10 (5-15); BUN 8 mg/dL (4-19); BUN/Creat Ratio 11.1 RATIO (10-20); Calcium,Total 9.5 mg/dL (7.6-11.0); Carbon Dioxide 23.1 mmol/L (21.0-32.0); Chloride 104 mmol/L (98-108); Creatinine, Serum 0.75 mg/dL (0.70-1.20); EST Glomerular Filtration Rate 112 (>60); Estimated Creatinine Clearance 101.39 ml/min (50-250); Glucose 87 mg/dL (70-99); Potassium 4.4 mmol/L (3.3-5.1); Sodium Level 137 mmol/L (133-145)
--- NOTE | 2025-02-07 16:49 | EDS_ITS ---
HPI <JORGE LUIS Araiza - Last Filed: 02/07/25 19:34> History of Present Illness Chief Complaint: Depression Narrative Narrative: Patient is a 25-year-old female with history of anxiety, depression, ADHD who presents to the emergency department for feeling overwhelmed, anxiety, suicidal thoughts. Patient states has been out of her Zoloft as well as her Strattera over the last week. Patient states that she overslept her appointment today and could not get another 1. Patient then was hitting [employer] on trying to get her medication, she became angry, yelled at her significant other, and went into the bathroom. Patient states in the bath when she was alone she did have some suicidal ideations however she had no plan to harm herself. She then spoke to the [facility] mental helpline, they referred her to the emergency department. PFSH <JORGE LUIS Araiza - Last Filed: 02/07/25 19:34> [facility] Medical History (Updated 02/07/25 @ 19:34 by JORGE LUIS Araiza) Care and examination of lactating mother Vaginal delivery History of depression Positive GBS test GDM, class A2 Pre-eclampsia 37 weeks gestation of HPV (human papilloma virus) infection Asthma PTSD (post-traumatic stress disorder) Anxiety Depression Pre-eclampsia Gestational diabetes Home Medications ?Medication ?Instructions ?Recorded ?Last Taken ?Type [id number] 1 mg 1 tab PO DAILY Check with primary 09/22/22 09/22/22 07:00 History tablet doctor labetalol 200 mg tablet 200 mg PO BID #60 tabs 09/25 Unknown Rx nifedipine 30 mg tablet,extended 30 mg PO DAILY #30 ta bs 09/25/22 Unknown Rx release 24 hr ondansetron 4 mg disintegrating 4 mg PO Q8H PRN PRN Na usea #10 tabs 03/17/23 Unknown Rx tablet Allergy/AdvReac Type Severity Reaction Status Date / Time No Known Allergies Allergy Verified 02/07/25 15:10 Family History no significant family his Surgical History History of surgery History of cholecystectomy Social History Smoking Status: Current every day smoker tobacco type: e-cigarettes ROS <JORGE LUIS Araiza - Last Filed: 02/07/25 19:34> ROS ED ROS Narrative Constitutional: Negative for fever, chills, weight loss, weakness Eyes: Negative for vision loss, vision change, double vision ENT: Negative for any sore throat, ear pain, congestion Cardiovascular: Negative for any chest pain, tightness, palpitations Respiratory: Negative for any cough, sputum production, hemoptysis, dyspnea, dyspnea on exertion, orthopnea Gastrointestinal: Negative for any abdominal pain, nausea, vomiting, diarrhea, constipation, blood in stool, blood in vomit : Negative for any urinary frequency, dysuria, retention, blood in urine Muscle skeletal: Negative for any neck pain, back pain Neurological: Negative for any headache, syncope, dizziness Skin: Negative for any rashes, itching, abrasions, lacerations Psychiatric: Negative for any homicidal ideation. Positive for suicide ideation, anxiety, increased stress Hematologic: Negative for any excessive bruising, easy bleeding EXAM <JORGE LUIS Araiza - Last Filed: 02/07/25 19:34> Physical Exam Narrative Exam Narrative: Vital signs reviewed. HEET: Head normocephalic atraumatic, TMs clear bilaterally. Posterior pharynx is clear, moist mucous membranes. Nares clear bilaterally. Neck: Supple with no lymphadenopathy or tenderness. No signs of meningismus. Cardiac: Regular rate and rhythm no murmurs gallops or rubs, equal peripheral pulses bilaterally. Respiratory: Lungs clear to auscultation bilaterally. No chest tenderness. Abdomen: Soft, nontender, nondistended. No abdominal bruit or pulsatile masses. No hepatosplenomegaly Extremities: No peripheral edema, no signs of gross trauma or deformity. Active full range of motion of all extremities. Neuro: Cranial nerves II through XII intact, no focal neurological deficits. Skin: Clean dry and intact with no rash, purpura, petechiae, vesicles or pustules. Backs/flank: No CVA tenderness, no midline spinal tenderness, no deformity. Psych: Normal mood and affect. Patient appears to be in no obvious distress. Patient states he is not having suicidal ideation now. Pay states she thinks it was situational. Const Vital Signs: 02/07/25 15:09 02/07/25 16:09 02/07/25 16:57 Temperature 98.7 F Temperature Source Oral Pulse Rate 90 76 Respiratory Rate 18 16 Blood Pressure 130/101 H 101/59 L 107/81 H Blood Pressure Mean 110 73 89 Pulse Ox 100 98 Oxygen Delivery Method Room Air Room Air 02/07/25 18:00 02/07/25 19:00 02/07/25 19:55 Temperature 98 F Temperature Source Pulse Rate 96 66 Respiratory Rate 12 Blood Pressure 119/82 H 119/82 H 118/62 Blood Pressure Mean 94 94 80 Pulse Ox 99 100 Oxygen Delivery Method Room Air Positive well nourished and well developed General Appearance ED: well developed <Alberto Infante MD - Last Filed: 02/07/25 23:32> Physical Exam Const Vital Signs: 02/07/25 15:09 02/07/25 16:09 02/07/25 16:57 Temperature 98.7 F Temperature Source Oral Pulse Rate 90 76 Respiratory Rate 18 16 Blood Pressure 130/101 H 101/59 L 107/81 H Blood Pressure Mean 110 73 89 Pulse Ox 100 98 Oxygen Delivery Method Room Air Room Air 02/07/25 18:00 02/07/25 19:00 02/07/25 19:55 Temperature 98 F Temperature Source Pulse Rate 96 66 Respiratory Rate 12 Blood Pressure 119/82 H 119/82 H 118/62 Blood Pressure Mean 94 94 80 Pulse Ox 99 100 Oxygen Delivery Method Room Air MDM <JORGE LUIS Araiza - Last Filed: 02/07/25 19:34> MDM Lab Data Labs: Laboratory Results - last 24 hr 02/07/25 02/07/25 15:41 16:45 WBC 6.3 RBC 4.66 Hgb 14.0 Hct 41.5 MCV 89.1 MCH 30.0 MCHC 33.7 RDW Std Deviation 42.7 RDW Coeff of [place] 13.1 Plt Count 291 MPV 9.3 Immature Gran % (Auto) 0.200 Neut % (Auto) 64.9 Lymph % (Auto) 27.9 [place] % (Auto) 5.4 Eos % (Auto) 0.8 Baso % (Auto) 0.8 Absolute Neuts (auto) 4.1 Absolute Lymphs (auto) 1.75 Nucleated RBC % 0 Sodium 137 Potassium 4.4 Chloride 104 Carbon Dioxide 23.1 Anion Gap 10 BUN 8 Creatinine 0.75 Estim Creat Clear Calc 101.39 Est GFR (MDRD) Non-Af 112 BUN/Creatinine Ratio 11.1 Glucose 87 Calcium 9.5 Serum , Qual NEGATIVE Urine Opiates Screen NEGATIVE U Buprenorphine Qual NEGATIVE Ur Oxycodone Screen NEGATIVE Urine Methadone Screen NEGATIVE Urine Fentanyl Screen NEGATIVE Ur Barbiturates Screen NEGATIVE Ur Phencyclidine Scrn NEGATIVE Ur Amphetamines Screen NEGATIVE U Benzodiazepines Scrn NEGATIVE Urine Cocaine Screen NEGATIVE U Cannabinoids Screen PRESUMPTIVE POSITIVE Ethyl Alcohol < 10.1 Treatment and Re-Evaluation :: Differential diagnosis includes however is not limited to: Suicidal ideation, homicidal ideation, situational stress, medication noncompliance Patient appears generally well, vital signs are stable, patient is nontoxic- appearing. Presenting to the emergency department for complaints of increased stress, complaints of having suicidal ideation. Patient did get referred from the [facility] psychiatric line. Patient usually sees the counseling center.Patient's CBC is unremarkable, chemistries unremarkable, patient is not , negative for any alcohol use. Patient will need to be currently evaluated by the counselor. On my evaluation of the patient was unremarkable, no distress. Patient's drug screen was negative. Patient did get seen by the crisis center. Patient will be given a safety plan. At this time, patient is not meet any criteria for placement. Patient is becoming less suicidal. Patient believes this is mostly stress related. The crisis center is working on the patient getting the medications. At this time, patient is stable for discharge. Instructed return for any worsening feelings, suicidal ideations, homicidal ideations <Alberto Infante MD - Last Filed: 02/07/25 23:32> [facility] MDM Narrative Medical decision making narrative: Dr. Infante: I have personally performed a face to face assessment of the patient and have reviewed the [facility] Note. I performed a substantive portion of the visit including all aspects of the following. My suggs findings include: History is depression with suicidal thoughts. Was seen by crisis today and had a safety plan. Has been without her medication for approximately a week according to her boyfriend. Filled out a questionnaire which was positive for suicidal ideation, sent to emergency department. Exam is afebrile. Vital signs noted. Nontoxic-appearing. Cardiovascular examination regular rate and rhythm. Lungs clear to auscultation bilaterally. Abdomen soft nontender with normoactive bowel sounds. Denies suicidal ideation with plan currently. Medical Decision Making: Medical clearance labs. Crisis evaluation. In discussion with the crisis counselor, she has already been safety plan today. It was not felt that she was meeting criteria for placement. She will follow-up with the counseling center on a daily basis and they will see if they can have her meds written for her earlier by their provider. Disposition is discharged in stable condition. Other additions or changes: [None] History & Record Review Discussion w/independent historian: Patient and Significant other Lab Data Attestation: I reviewed the patient's lab results. Labs: Laboratory Results - last 24 hr 02/07/25 02/07/25 15:41 16:45 WBC 6.3 RBC 4.66 Hgb 14.0 Hct 41.5 MCV 89.1 MCH 30.0 MCHC 33.7 RDW Std Deviation 42.7 RDW Coeff of [place] 13.1 Plt Count 291 MPV 9.3 Immature Gran % (Auto) 0.200 Neut % (Auto) 64.9 Lymph % (Auto) 27.9 [place] % (Auto) 5.4 Eos % (Auto) 0.8 Baso % (Auto) 0.8 Absolute Neuts (auto) 4.1 Absolute Lymphs (auto) 1.75 Nucleated RBC % 0 Sodium 137 Potassium 4.4 Chloride 104 Carbon Dioxide 23.1 Anion Gap 10 BUN 8 Creatinine 0.75 Estim Creat Clear Calc 101.39 Est GFR (MDRD) Non-Af 112 BUN/Creatinine Ratio 11.1 Glucose 87 Calcium 9.5 Serum , Qual NEGATIVE Urine Opiates Screen NEGATIVE U Buprenorphine Qual NEGATIVE Ur Oxycodone Screen NEGATIVE Urine Methadone Screen NEGATIVE Urine Fentanyl Screen NEGATIVE Ur Barbiturates Screen NEGATIVE Ur Phencyclidine Scrn NEGATIVE Ur Amphetamines Screen NEGATIVE U Benzodiazepines Scrn NEGATIVE Urine Cocaine Screen NEGATIVE U Cannabinoids Screen PRESUMPTIVE POSITIVE Ethyl Alcohol < 10.1 Discharge Plan Triage Chief Complaint: Depression ED Midlevel Provider: Carlyle Fontaine ED Provider: Alberto Infante Dx/Rx/DC Orders Clinical Impression: Depression with suicidal ideation, Stress reaction, Anxiety Instructions: Anxiety Disorders Tx, Anxiety Disorders Meds, ED Anxiety Reaction Prescriptions: No Action [id number] 1 mg Tablet 1 tab PO DAILY labetalol 200 mg Tablet 200 mg PO BID Qty: 60 1RF nifedipine 30 mg Tablet Extended Release 24hr 30 mg PO DAILY Qty: 30 1RF ondansetron [ondansetron] 4 mg tablet,disintegrating 4 mg PO Q8H PRN PRN (Reason: Nausea) Qty: 10 0RF Stand Alone Forms: ED Work / School Excuse Primary Care Provider: MAGGIE ALCALA Referrals: MAGGIE ALCALA [Other] Activity Restrictions/Additional Instructions: Please continue to follow-up with the crisis center. Return for any worsening symptoms. Print Language: Ivorian Disposition Disposition: Home, Self Care Discharge Date/Time: 02/07/25 19:57
[2025-02-07 16:57] VITALS: BP 107/81; PULSE 76; RESP 16; O2SAT 98
[2025-02-07 17:25] LABS: Amphetamine Urine NEGATIVE (<1000 ng/mL); Barbiturate Urine NEGATIVE (< 200 ng/mL); Benzodiazepine Urine NEGATIVE (< 200 ng/mL); Buprenorphine Urine NEGATIVE (< 200 ng/mL); Cocaine Urine NEGATIVE (< 300 ng/mL); Fentanyl, Urine NEGATIVE; Methadone Urine NEGATIVE (< 300 ng/mL); Opiates Urine NEGATIVE (< 300 ng/mL); Oxycodone, Urine NEGATIVE (< 100 ng/mL); PCP Urine NEGATIVE (< 25 ng/mL); THC Urine PRESUMPTIVE POSITIVE (< 50 ng/mL)
--- NOTE | 2025-02-07 17:48 | CM.ED ---
Social work Due to patient being self-pay, this was referred to [facility] (ph: [phone]). Per Ifeoma at [facility], this patient had presented to [facility] as a walk-in earlier today, about 1330, and was assessed by Jemima and given a safety plan. Ifeoma stated ability to come see patient in the ED to have a further conversation. Labwork faxed to [facility] per request (f: ). Toxicology was still pending. Rose Rodrigez, CARPENTER MATE, CUSHION STUFFER
[2025-02-07 18:00] VITALS: BP 119/82; PULSE 96; O2SAT 99
[2025-02-07 19:00] VITALS: BP 119/82
[2025-02-07 19:55] VITALS: BP 118/62; PULSE 66; RESP 12; TEMP 36.6; O2SAT 100
== END 2025-02-07 19:57 | disposition home or self-care (01) ==
PROVIDERS: Emergency Provider Emergency Medicine; Visit Provider Emergency Medicine
DX: R45.851 Suicidal ideations (principal); F41.9 Anxiety disorder, unspecified; F32.A Depression, unspecified; F43.9 Reaction to severe stress, unspecified; F90.9 Attention-deficit hyperactivity disorder, unspecified type; J45.909 Unspecified asthma, uncomplicated; F17.290 Nicotine dependence, other tobacco product, uncomplicated
CPT/HCPCS: 80048; 80307; 82077; 84703; 85025; 99284